=== PATIENT | male | born 1960 ===

== ENCOUNTER 2016-12-25 09:58 | Emergency (ER) | payer OTHER ==
[2016-12-25 10:04] VITALS: BP 135/81; PULSE 60; RESP 19; TEMP 98.3; O2SAT 98; BMI 27.0
--- NOTE | 2016-12-25 10:23 | ED PDOC ---
Lower Extremity Pain/Injury Time Seen by Provider: 12/25/16 10:23 Chief Complaint (Nursing): Lower Extremity Problem/Injury Chief Complaint (Provider): foot injury History Per: Patient Additional Complaint(s): 56-year-old male with no past medical history presents with puncture wound to right foot that happened about 1 hour prior to arrival. Patient states he stepped on a nail that punctured his shoe into his foot. Patient is not sure of last tetanus, he is mild pain to affected area. Past Medical History Reviewed: Historical Data, Nursing Documentation, Vital Signs Vital Signs: Last Vital Signs Temp 98.3 F 12/25/16 10:03 Pulse 60 12/25/16 10:03 Resp 19 12/25/16 10:03 BP 135/81 12/25/16 10:03 Pulse Ox 98 12/25/16 10:03 - Medical History PMH: No Chronic Diseases - Surgical History Surgical History: No Surg Hx - Family History Family History: States: No Known Family Hx - Living Arrangements Living Arrangements: With Family - Social History Current smoker - smoking cessation education provided: No Alcohol: Social Drugs: Denies - Immunization History Hx Tetanus Toxoid Vaccination: No - Home Medications Home Medications: Ambulatory Orders Medication Instructions Recorded No Known Home Med 01/16/16 - Allergies Allergies/Adverse Reactions: Allergies Allergy/AdvReac Type Severity Reaction Status Date / Time No Known Allergies Allergy Verified 12/25/16 10:12 Review of Systems ROS Statement: Except As Marked, All Systems Reviewed And Found Negative Musculoskeletal: Positive for: Other (puncture wound right foot) Physical Exam - Reviewed Nursing Documentation Reviewed: Yes Vital Signs Reviewed: Yes - Physical Exam Appears: Positive for: Well Skin: Negative for: Rash Cardiovascular/Chest: Positive for: Regular Rate, Rhythm Respiratory: Positive for: Normal Breath Sounds Extremity: Positive for: Other (puncture wound right foot, no active bleeding, no retained FB) Neurologic/Psych: Positive for: Alert, Oriented - ECG O2 Sat by Pulse Oximetry: 98 Pulse Ox Interpretation: Normal - Other Rad right foot x-ray X-Ray: Interpreted by Me, Viewed By Me X-Ray Interpretation: no fx, no dis, no FB Medical Decision Making Medical Decision Making: Impression: Right foot puncture wound Plan: X-ray right foot PO mottrin Tetanus booster Wound cleansed with NS and betadine, bacitracin and bandage applied. Wound care instructions given. Disposition - Clinical Impression Clinical Impression: Puncture wound, Requires a booster tetanus - Patient ED Disposition Is Patient to be Admitted: No Counseled Patient/Family Regarding: Studies Performed, Diagnosis, Need For Followup - Disposition Referrals: Podiatry Clinic [Outside] Disposition: Routine/Home Disposition Time: 11:03 Condition: STABLE Additional Instructions: Keep area clean and dry. Over the counter advil for pain as needed. Follow up with podiatry clinic in 2-3 days. Instructions: Diphtheria/Acellular Pertussis/Tetanus Booster Vaccine (Tdap) ( Injection), Puncture Wound (ED) Print Language: JAMAICAN
[2016-12-25] MEDS ORDERED: TDAP Vaccine 0.5 mL Syr IM ONE (11:01)
--- NOTE | 2016-12-25 17:21 | RAD ---
PROCEDURE: Right Foot Radiographs. HISTORY: trauma COMPARISON: None. FINDINGS: BONES: No acute fracture. JOINTS: No acute findings related to/accounting for the clinical presentation. SOFT TISSUES: Normal. OTHER FINDINGS: None. IMPRESSION: No significant or acute findings to account for/ related to the clinical presentation. Concordant results with the preliminary interpretation rendered by the emergency department physician procedure.
== END 2016-12-25 11:50 | disposition home or self-care (01) ==
LOC: H.ER 09:58
DX: S91.331A Puncture wound without foreign body, right foot, initial encounter (principal); W45.0XXA Nail entering through skin, initial encounter; Y92.89 Other specified places as the place of occurrence of the external cause